=== PATIENT | male | born 1945 | race Caucasian/White ===

== ENCOUNTER 2017-05-01 11:48 | Emergency (ER) | payer OTHER ==
[2017-05-01 12:01] VITALS: TEMP 97.5
--- NOTE | 2017-05-01 12:18 | EDPHY ---
H & P Stated Complaint: periumbilical abd pain awakened him from sleep/nausea Time Seen by Provider: 05/01/17 12:13 HPI/ROS: CHIEF COMPLAINT: Resolved abdominal pain HISTORY OF PRESENT ILLNESS: The patient presents to the emergency department after an episode of resolved abdominal pain. The patient's symptoms began about 2 o'clock in the morning. He initially healthy was experiencing acid reflux. The patient took an antacid. The patient had improvement of his symptoms. At 8 o'clock this morning he developed some chills, diaphoresis and a mild recurrence of right lower quadrant pain. The patient reportedly checked his blood pressure it was somewhat low. He contacted his primary care provider who referred him to the emergency department. The patient states currently his symptoms have more or less abated. The patient does report a history of mild urinary frequency. The patient does have a history of prior prostatectomy. The patient denies significant abdominal surgery. He has no additional acute complaints. REVIEW OF SYSTEMS: A comprehensive 10 point review of systems is otherwise negative aside from elements mentioned in the history of present illness. Source: Patient Exam Limitations: No limitations - Personal History Current Tetanus/Diphtheria Vaccine: Yes Tetanus Vaccine Date: 2008 - Medical/Surgical History Hx Asthma: No Hx Chronic Respiratory Disease: No Hx Diabetes: No Hx Cardiac Disease: Yes Hx Renal Disease: Yes Hx Cirrhosis: No Hx Alcoholism: No Hx HIV/AIDS: No Hx Splenectomy or Spleen Trauma: No Other PMH: Gastric ulcers, right knee replacement and bone spurs, afib, HTN, ADD , L renal insufficiency - Social History Smoking Status: Never smoked - Physical Exam Exam: General Appearance: Alert, no distress Eyes: Pupils equal and round no pallor or injection ENT, Mouth: Mucous membranes moist Respiratory: There are no retractions, lungs are clear to auscultation Cardiovascular: Regular rate and rhythm Gastrointestinal: Abdomen is soft and nontender, no masses, bowel sounds normal Neurological: A&O, normal motor function, normal sensory exam, normal cranial nerves Skin: Warm and dry, no rashes Musculoskeletal: Neck is supple nontender Extremities: symmetrical, full range of motion Constitutional: Initial Vital Signs Temperature (C) 36.4 C 05/01/17 11:57 Heart Rate 70 05/01/17 11:57 Respiratory Rate 18 05/01/17 11:57 Blood Pressure 116/74 05/01/17 11:57 O2 Sat (%) 98 05/01/17 11:57 O2 Delivery Mode Room Air Allergies/Adverse Reactions: bacitracin [From Neosporin ([id number])] Allergy (Verified 05/01/17 11:56) bacitracin zinc [From Neosporin ([id number])] Allergy (Verified 05/01/17 11: 56) morphine sulfate [From Duramorph (PF)] Allergy (Verified 05/01/17 11:56) neomycin sulfate [From Neosporin ([id number])] Allergy (Verified 05/01/17 11: 56) polymyxin B [From Neosporin ([id number]-[id number])] Allergy (Verified 05/01/17 11:56) Home Medications: Medication Instructions Recorded Cholecalciferol Vit D3 [Vitamin D3 5,000 units PO DAILY 11/19/14 (*)] Herbals/Supplements -Info Only 1 ea PO DAILY 11/19/14 Oxytocin Caps 20 Unit 20 units PO TID 11/19/14 Selegeline 2mg Cap 2 mg SL TID 11/19/14 Acetaminophen [Tylenol 325mg (*)] 650 mg PO Q4 PRN #0 tab 01/22/16 Ciclopirox Olamine [Ciclopirox] 1 elda TP DAILY 01/22/16 Famotidine [Pepcid 20 MG (*)] 10 mg PO DAILY 01/22/16 Lisinopril [Zestril 10 mg (*)] 30 mg PO DAILY 01/22/16 Lisinopril [Zestril 40 mg (*)] 40 mg PO HS 01/22/16 Tamsulosin HCl [Flomax 0.4 MG (*)] 0.4 mg PO HS 01/22/16 Warfarin Sodium [Coumadin 5MG (*)] 12.5 mg PO DAILY16 01/22/16 Medical Decision Making - Diagnostics EKG Interpretation: EKG: Complete interpretation has been separately recorded in the [employer] archive. Summary impression: Sinus rhythm, rate 61 ED Course/Re-evaluation: The patient presents to the ED for evaluation of an episode of resolved abdominal pain with some associated chills and weakness earlier today. The patient's abdominal examination is entirely benign at the time of my evaluation. The patient's blood pressure and heart rate are normal. He is afebrile. The patient did have mild urinary frequency but has an unremarkable urine dipstick. The patient's laboratory studies are unremarkable. The patient had serial examinations by myself over a 2 hour period. At this point time his symptoms have entirely resolved. He has no evidence of any abnormal physical exam findings or laboratory testing. At this point time I do feel he can be discharged home with clear instructions to return to the ED for any fever , recurrent pain, chest pain, difficulty breathing, presyncope or syncope. Differential Diagnosis: Differential diagnosis considered includes appendicitis, arrhythmia, anemia, abdominal aortic aneurysm, urinary tract infection, dehydration, renal failure - Data Points Laboratory Results: Laboratory Results 05/01/17 12:14 05/01/17 12:14 05/01/17 05/01/17 05/01/17 12:14 12:14 12:14 WBC 8.24 10^3/uL 10^3/uL (3.80-9.50) RBC 5.40 10^6/uL 10^6/uL (4.40-6.38) Hgb 16.4 g/dL g/dL (13.7-17.5) Hct 48.0 % % (40.0-51.0) MCV 88.9 fL fL (81.5-99.8) MCH 30.4 pg pg (27.9-34.1) MCHC 34.2 g/dL g/dL (32.4-36.7) RDW 14.6 % % (11.5-15.2) Plt Count 160 10^3/uL 10^3/uL (150-400) MPV 9.4 fL fL (8.7-11.7) Neut % (Auto) 81.1 % H % (39.3-74.2) Lymph % (Auto) 10.4 % L % (15.0-45.0) Frontier % (Auto) 7.2 % % (4.5-13.0) Eos % (Auto) 0.8 % % (0.6-7.6) Baso % (Auto) 0.4 % % (0.3-1.7) Nucleat RBC Rel Count 0.0 % % (0.0-0.2) Absolute Neuts (auto) 6.68 10^3/uL H 10^3/uL (1.70-6.50) Absolute Lymphs (auto) 0.86 10^3/uL L 10^3/uL (1.00-3.00) Absolute Monos (auto) 0.59 10^3/uL 10^3/uL (0.30-0.80) Absolute Eos (auto) 0.07 10^3/uL 10^3/uL (0.03-0.40) Absolute Basos (auto) 0.03 10^3/uL 10^3/uL (0.02-0.10) Absolute Nucleated RBC 0.00 10^3/uL 10^3/uL (0-0.01) Immature Gran % 0.1 % % (0.0-1.1) Immature Gran # 0.01 10^3/uL 10^3/uL (0.00-0.10) PT 26.9 SEC H SEC (12.0-15.0) INR 2.46 H (0.83-1.16) Sodium 137 mEq/L mEq/L (134-144) Potassium 4.3 mEq/L mEq/L (3.5-5.2) Chloride 99 mEq/L mEq/L (97-110) Carbon Dioxide 27 mEq/l mEq/l (22-31) Anion Gap 11 mEq/L mEq/L (8-16) BUN 17 mg/dL mg/dL (7-23) Creatinine 1.0 mg/dL mg/dL (0.7-1.3) Estimated GFR > 60 Glucose 72 mg/dL mg/dL (70-100) Calcium 9.5 mg/dL mg/dL (8.5-10.4) Departure - Departure Disposition: Home, Routine, Self-Care Clinical Impression: Abdominal pain Condition: Good Instructions: Abdominal Pain (ED) Additional Instructions: 1. Sometimes we are unable to diagnose an obvious cause of abdominal pain in the Emergency Department. Based upon our evaluation today, we see no obvious explanation for your pain. Because more serious conditions can be difficult to diagnose early in the course of their presentation, we ask that you return to the Emergency Department in 8-12 hours for a recheck if you are still having pain. This is necessary to exclude the development of a more serious condition such as appendicitis or other intra-abdominal emergency. In the event your pain markedly increases before that time or you develop intractable vomiting or fever return to the Emergency Department immediately. 2. Return to the emergency department for any fever, shortness of breath, passing out or other concerns. Referrals: Chris Tom DO [Primary Care Provider] - As per Instructions
--- NOTE | 2017-05-01 12:30 | CPEKG ---
Heart Rate: 61 RR Interval: 984 P-R Interval: 172 QRSD Interval: 72 QT Interval: 424 QTC Interval: 427 P Eldridge: 39 QRS Eldridge: 46 T Wave Eldridge: 66 EKG Severity - NORMAL ECG - EKG Impression: SINUS RHYTHM Electronically Signed By: Chris Matos 01-May-2017 12:51:22
[2017-05-01 12:35] LABS: % IMMATURE GRANULYOCYTES 0.1 % (0.0-1.1); ABSOLUTE IMMATURE GRANULOCYTES 0.01 10^3/uL (0.00-0.10); ADD DIFF? NO; ADD MORPH? NO; ADD SCAN? NO; ATYPICAL LYMPHOCYTE FLAG 0 (0-99); FRAGMENT RBC FLAG 0 (0-99); HEMOGLOBIN 16.4 g/dL (13.7-17.5); LEFT SHIFT FLG 0 (0-99); LIPEMIA HEMOLYSIS FLAG 90 (0-99); MEAN CELL HEMOGLOBIN 30.4 pg (27.9-34.1); MEAN CELL HEMOGLOBIN CONCENTR. 34.2 g/dL (32.4-36.7); MEAN CELL VOLUME 88.9 fL (81.5-99.8); MEAN PLATELET VOLUME 9.4 fL (8.7-11.7); PLATELET CLUMPS FLAG 0 (0-99); PLATELET COUNT 160 10^3/uL (150-400); RED CELL DISTRIBUTION WIDTH 14.6 % (11.5-15.2)
[2017-05-01 12:41] LABS: INR 2.46 (0.83-1.16); PROTIME(PATIENT) 26.9 SEC (12.0-15.0)
[2017-05-01 12:56] LABS: ANION GAP 11 mEq/L (8-16); CALCIUM 9.5 mg/dL (8.5-10.4); CARBON DIOXIDE 27 mEq/l (22-31); CHLORIDE 99 mEq/L (97-110); GLOMERULAR FILTRATION RATE > 60; GLUCOSE 72 mg/dL (70-100); POTASSIUM 4.3 mEq/L (3.5-5.2); SODIUM 137 mEq/L (134-144)
[2017-05-01 14:08] VITALS: BP 118/81; PULSE 62; RESP 16; O2SAT 94
== END 2017-05-01 14:16 | disposition home or self-care (01) ==
DX: R10.9 Unspecified abdominal pain (principal); I10 Essential (primary) hypertension; Z79.01 Long term (current) use of anticoagulants